=== PATIENT | male | born 1995 | race Caucasian/White ===

== ENCOUNTER → 2016-11-18 | Outpatient (CLI) | payer OTHER ==
--- NOTE | 2016-11-18 15:19 | RAD ---
Right Little finger, 3 views, 11/18/2016: History: Injury, pain There is a slightly comminuted fracture of the terminal tuft of the distal phalanx. There is mild volar displacement of the major distal fracture fragment. The DIP joint is uninvolved. The proximal and middle phalanges are unremarkable. IMPRESSION: Comminuted fracture of the terminal tuft of the distal phalanx.
== END | disposition home or self-care (01) ==
LOC: DXRADRC 15:01
PROVIDERS: ATTEND Physician Assistant
DX: S62.636A Displaced fracture of distal phalanx of right little finger, initial encounter for closed fracture (principal); X58.XXXA Exposure to other specified factors, initial encounter; Y93.89 Activity, other specified; Y92.89 Other specified places as the place of occurrence of the external cause; Y99.8 Other external cause status
CPT/HCPCS: 73140